=== PATIENT | male | born 1940 | race Caucasian/White ===

== ENCOUNTER → 2019-09-09 | Outpatient (CLI) | payer MEDICARE, BC ==
[~2019-09-09] MED LIST: ACET-1600 PO; ACET325T14 PO; BRIM5DRO3 EACHEYE; BUPR150T73 PO; CETI10TA26 PO; CITA20TA9 PO; CYCL-259 PO; FEXO180T72 PO; FLUT10SP NAS; FLUT1DIS3 INH; HYDR-3237 PO; HYDR2TAB29 PO; HYDR2TAB40 PO; IBUP-1223 PO; LISI-167 PO; MAGN400O7 PO; METF500T17 PO; MIRA25TA PO; SENN-31 PO; VALA500T4 PO
== END | disposition home or self-care (01) ==
LOC: CFH 13:09
PROVIDERS: ATTEND Nurse Practitioner
DX: S42.492A Other displaced fracture of lower end of left humerus, initial encounter for closed fracture (principal); M19.022 Primary osteoarthritis, left elbow; M25.722 Osteophyte, left elbow; M25.422 Effusion, left elbow; X58.XXXA Exposure to other specified factors, initial encounter; M79.89 Other specified soft tissue disorders; Y93.89 Activity, other specified; Y92.89 Other specified places as the place of occurrence of the external cause; Y99.8 Other external cause status